=== PATIENT | male | born 1985 | race African-American/Black ===

== ENCOUNTER 2024-03-31 11:01 | Emergency (ER) | payer MEDICAID ==
[~2024-03-31] VITALS: Ht 175.3 cm; Wt 75.0 kg
[2024-03-31 11:31] VITALS: BP 129/73; PULSE 86; RESP 18; TEMP 98.5
[2024-03-31 11:40] LABS: COVID AG,FIA SOURCE NASAL SWAB
[2024-03-31 12:32] LABS: INFLUENZA TYPE A NEGATIVE FOR TYPE A (NEGATIVE); INFLUENZA TYPE B NEGATIVE FOR TYPE B (NEGATIVE); SARS-COV2 (COVID) ANTIGEN,FIA Negative (Negative)
[2024-03-31 12:42] LABS: RAPID GROUP A STREP NEGATIVE (NEGATIVE)
[2024-03-31] MEDS: CefTRIAXone 1 GM/DEXTROSE 50 ML IV ONE (13:12)
[2024-03-31] MEDS: DEXAMETHASONE SOD PHOS 4 MG/ML 5 ML VIAL IVP ONE (13:12)
[2024-03-31] MEDS: KETOROLAC TROMETHAMINE 30 MG/ML VIAL IVP ONE (13:12)
[2024-03-31] MEDS ORDERED: AMOX-457 PO (13:34)
[2024-03-31] MEDS ORDERED: IBUP-1492 PO (13:34)
== END 2024-03-31 13:44 | disposition home or self-care (01) ==
LOC: EMS 11:01
DX: J36 Peritonsillar abscess (principal); Z20.822 Contact with and (suspected) exposure to COVID-19
CPT/HCPCS: 99284; 96365; 96375; 87426; 87430; 87804; J0696; J1100; J1885